=== PATIENT | female | born 1945 | race Caucasian/White ===

== ENCOUNTER 2019-06-29 10:42 | Emergency (ER) | payer MEDICARE, OTHER ==
[2019-06-29] MEDS ORDERED: Acetaminophen TAB* 325 MG PO ONE (10:59)
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
[2019-06-29] MEDS ORDERED: Lidocaine PATCH 5%* 1 PATCH TRANSDERM SCH (12:15)
[2019-06-29 12:52] VITALS: BP 133/67
[2019-06-29] MEDS ORDERED: Lidocaine Patch REMOVE* 1 NOTE MISC SCH (21:00)
[2019-06-29] MEDS ORDERED: Lidocaine Patch REMOVE* 1 NOTE MISC PATCH OFF SCH (21:00)
== END 2019-06-29 12:51 | disposition home or self-care (01) ==
LOC: ED 10:42
DX: R07.89 Other chest pain (principal); S20.319A Abrasion of unspecified front wall of thorax, initial encounter; V47.5XXA Car driver injured in collision with fixed or stationary object in traffic accident, initial encounter; Y92.410 Unspecified street and highway as the place of occurrence of the external cause; E11.9 Type 2 diabetes mellitus without complications; I10 Essential (primary) hypertension; E78.5 Hyperlipidemia, unspecified; G47.30 Sleep apnea, unspecified
CPT/HCPCS: 71046; 99282; A9270-GY

== ENCOUNTER 2019-10-03 12:54 | Emergency (ER) | payer MEDICARE, OTHER ==
[2019-10-03] MEDS ORDERED: Ondansetron INJ* 2 MG/ML VIAL IV ONE (13:39)
[2019-10-03] MEDS ORDERED: Morphine 4 MG/ML VIAL (1 ml) 4 MG/ML VIAL IV ONE ×2 (13:39→15:23)
[2019-10-03] MEDS ORDERED: NS 0.9% 1000 ML** 1,000 ML IV ONE (13:39)
--- NOTE | 2019-10-03 13:40 | ED ---
Abdominal Pain/Female - HPI Summary HPI Summary: Patient is a 73 y/o F presenting to the ED for a chief complaint of RLQ abdominal pain. Patient is present with her . On 10/03/19, patient began to feel RLQ abdominal pain, constipation, dizziness, dry mouth, lightheadedness , palpitations, chills, nausea, and vomiting. She rates her abdominal pain as 5/ 10 in severity and is described as a dull sensation. She describes her one episode of vomiting as avila in color. She last had a bowel movement on 10/03/19 and notes difficulty with urinary voiding on 10/02/19. Patient took milk of magnesia and drank hot tea without relief. On 10/01/19, she noticed erythema and swelling of the left ring finger that her hairdresser told her could be cellulitis, which has since resolved after removing her rings. Patient denies any fever, erythema of eyes, sore throat, CP, SOB, cough, dysuria, hematuria, urinary burning, blood in the stool, myalgia, or rash. She recently started Toviaz for urinary incontinence prescribed her Dr. Nicholson with relief of her urinary incontinence. PSHx is significant for bariatric surgery 5 years ago and tubal ligation. - History of Current Complaint Chief Complaint: EDAbdPain Stated Complaint: RIGHT ABD PAIN Time Seen by Provider: 10/03/19 13:18 Hx Obtained From: Patient Onset/Duration: Sudden Onset, Still Present Timing: Intermittent Episode Lasting Severity Initially: Moderate Severity Currently: Moderate Pain Intensity: 5 Pain Scale Used: 0-10 Numeric Location: Discrete At: RLQ Radiates: No Character: Dull Aggravating Factor(s): Nothing Alleviating Factor(s): Nothing Associated Signs and Symptoms: Positive: Dizzy, Constipation, Vomiting. Negative: Diaphoresis, Fever, Cough, Chest Pain, Blood in Stool, Urinary Symptoms - Negative dysuria, hematuria, or urinary burning Allergies/Adverse Reactions: Allergies Allergy/AdvReac Type Severity Reaction Status Date / Time No Known Allergies Allergy Verified 10/03/19 13:00 Home Medications: Home Medications Bupropion XL* [Wellbutrin XL *] 150 mg PO DAILY 10/03/19 [History Confirmed 12/21] Vit A/Vit C/Vit E/Zinc/Copper [Preservision Areds Softgel] 1 each PO DAILY 10/03 [History Confirmed 10/03/19] PMH/Surg Hx/FS Hx/Imm Hx Previously Healthy: Yes Endocrine/Hematology History: Reports: Hx Diabetes - diet controlled, Hx Anemia - OFF AND ON / HX OF WHITE BLOOD ANORMALY, SEES DR. BUTLER,, Other Endocrine/ Hematological Disorders - Presently has elevated WBC's (11-23-12) Denies: Hx Bone Marrow Disease, Hx Systemic Lupus Erythematosus, Hx Sickle Cell Disease, Hx Thyroid Disease Cardiovascular History: Reports: Hx Hypertension, Other Cardiovascular Problems/ Disorders - CHOLESTEROL CONTROL WITH MEDS Denies: Hx Congestive Heart Failure Respiratory History: Reports: Hx Sleep Apnea - current CPAP user Denies: Hx Asthma, Hx Chronic Obstructive Pulmonary Disease (COPD) Comment Only: Other Respiratory Problems/Disorders - sleep apnea GI History: Reports: Other GI Disorders - abnormal findings us,left adnexal mass Denies: Hx Ulcer History: Denies: Hx Dialysis, Hx Renal Disease, Other Problems/Disorders Musculoskeletal History: Reports: Hx Arthritis, Other Musculoskeletal History - arthritis in knees, wears a shoe lift Denies: Hx Rheumatoid Arthritis, Hx Osteoporosis Sensory History: Reports: Hx Cataracts - BILATERAL, Hx Contacts or Glasses, Hx Glaucoma Denies: Hx Legally Blind, Hx Deafness, Hx Hearing Aid Opthamlomology History: Reports: Hx Cataracts - BILATERAL, Hx Contacts or Glasses, Hx Glaucoma Denies: Hx Legally Blind EENT History: Denies: Hx Deafness Neurological History: Denies: Other Neuro Impairments/Disorders Psychiatric History: Reports: Hx Depression - NO MEDS - Cancer History Hx Chemotherapy: No Hx Radiation Therapy: No - Surgical History Surgical History: Yes Surgery Procedure, Year, and Place: uvulaectomy laser,tubal,right leg, , tonsilectomy 1999 RIGHT WRIST,1965 DOUBLE COMPOUND R LEG FX, gastric bypass-rny 09/15 Hx Anesthesia Reactions: No Infectious Disease History: No Infectious Disease History: Denies: Hx Clostridium Difficile, Hx Hepatitis, Hx Human Immunodeficiency Virus (HIV), Hx of Known/Suspected MRSA, Hx Shingles, Hx Tuberculosis, Hx Known/ Suspected VRE, Hx Known/Suspected VRSA, History Other Infectious Disease, Traveled Outside the [place] in Last 30 Days - Family History Known Family History: Positive: Hypertension, Respiratory Disease - emphysema, Other - pancreatic CA, prostate CA Negative: Diabetes - Social History Occupation: Retired Lives: With Family Alcohol Use: None Hx Substance Use: Yes Substance Use Type: Reports: None Substance Use Comment - Amount & Last Used: VERY OCCASIONALLY - NONE RECENTLY Hx Tobacco Use: No Smoking Status (MU): Never Smoked Tobacco Review of Systems Positive: Chills. Negative: Fever Negative: Erythema Positive: Other - Positive dry mouth. Negative: Sore Throat Positive: Palpitations. Negative: Chest Pain Negative: Shortness Of Breath, Cough Positive: Abdominal Pain - RLQ, Vomiting, Nausea, Other - Positive constipation ; negative blood in stool Positive: incontinence - Urinary. Negative: burning - Urinary, dysuria, frequency - Urinary, hematuria Negative: Myalgia, Edema Positive: Other - Positive erythema and redness of the left ring finger. Negative: Rash Neurological: Other - Positive dizziness and lightheadedness All Other Systems Reviewed And Are Negative: Yes Physical Exam - Summary Physical Exam Summary: Constitutional: Well-developed, Well-nourished, Alert. (-) Distressed Skin: Warm, Dry HENT: Normocephalic; Atraumatic Eyes: Conjunctiva normal Neck: Musculoskeletal ROM normal neck. (-) JVD, (-) Stridor, (-) Tracheal deviation Cardio: Rhythm regular, rate normal, Heart sounds normal; Intact distal pulses; The pedal pulses are 2+ and symmetric. Radial pulses are 2+ and symmetric. (-) Murmur Pulmonary/Chest wall: Effort normal. (-) Respiratory distress, (-) Wheezes, (-) Rales Abd: Soft, (-) tenderness, (-) Distension, (-) Guarding, (-) Rebound Musculoskeletal: (-) Edema Lymph: (-) Cervical adenopathy Neuro: Alert, Oriented x3 Psych: Mood and affect Normal Triage Information Reviewed: Yes Vital Signs On Initial Exam: Initial Vitals Temp Pulse Resp BP Pulse Ox 98.1 F 64 19 205/107 96 10/03/19 12:57 10/03/19 12:57 10/03/19 12:57 10/03/19 12:57 10/03/19 12:57 Vital Signs Reviewed: Yes Procedures - Sedation Patient Received Moderate/Deep Sedation with Procedure: No Diagnostics - Vital Signs Vital Signs Temp Pulse Resp BP Pulse Ox 10/03/19 12:57 98.1 F 64 19 205/107 96 - Laboratory Result Diagrams: 10/03/19 13:33 10/03/19 13:33 Lab Statement: Any lab studies that have been ordered have been reviewed, and results considered in the medical decision making process. - CT Abdomen/Pelvis CT CT Interpretation Completed By: Radiologist Summary of CT Findings: Abdomen/Pelvis CT IMPRESSION: #. The constellation of findings strongly favors recent passage of a 0.25 cm RIGHT renal stone with the stone now in the dependent portion of the urinary bladder. Associated mildly delayed RIGHT nephrogram and significant perinephric and periureteral edema. Negative for hydronephrosis. Correlate with urinalysis for potential associated urinary tract infection/pyelonephritis. Reviewed by Dr. Cline. - EKG 13:39 Cardiac Rate: Bradycardia - 55 BPM EKG Rhythm: Sinus Bradycardia ST Segment: Normal Ectopy: None Summary of EKG Findings: EKG at 13:39 shows 55 BPM with normal sinus rhythm, no STEMI. Reviewed and interpreted by Dr. Cline. Re-Evaluation - Re-Evaluation First Eval Re-Evaluation Time: 17:55 Change: Unchanged Comment: At 17:55, ureteral tone is present in the urine cup at the bedside. Abdominal Pain Fem Course/Dx - Course Course Of Treatment: Patient is a 73 y/o F presenting to the ED for a chief complaint of RLQ abdominal pain. Patient is present with her . On , patient began to feel RLQ abdominal pain, constipation, dizziness, dry mouth , lightheadedness, palpitations, chills, nausea, and vomiting. She rates her abdominal pain as 5/10 in severity and is described as a dull sensation. She describes her one episode of vomiting as avila in color. She last had a bowel movement on 10/03/19 and notes difficulty with urinary voiding on 10/02/19. Patient took milk of magnesia and drank hot tea without relief. On 10/01/19, she noticed erythema and swelling of the left ring finger that her hairdresser told her could be cellulitis, which has since resolved after removing her rings. Patient denies any fever, erythema of eyes, sore throat, CP, SOB, cough, dysuria, hematuria, urinary burning, blood in the stool, myalgia, or rash. She recently started Toviaz for urinary incontinence prescribed her Dr. Nicholson with relief of her urinary incontinence. PSHx is significant for bariatric surgery 5 years ago and tubal ligation. On exam, unremarkable findings. In the ED course, patient was given Bactrim 1 tab PO, visipaque 132 ml IV, morphine 2 mg IV, morphine 4 mg IV, Zofran 4 mg IV, and fluids. Laboratory abnormal findings: WBC 13.5, MCV 104, MCH 34, RDW 20, absolute neuts 12.2, absolute lymphs 0.7, glucose 139, c-reactive protein 11.29, lipase <10, urine speicifc gravity 1.043, urine protein 2+, urine ketones trace, urine blood 3+, urine RBC 3+. EKG at 13:39 shows 55 BPM with normal sinus rhythm, no STEMI. Abdomen/Pelvis CT IMPRESSION: #. The constellation of findings strongly favors recent passage of a 0.25 cm RIGHT renal stone with the stone now in the dependent portion of the urinary bladder. Associated mildly delayed RIGHT nephrogram and significant perinephric and periureteral edema. Negative for hydronephrosis. Correlate with urinalysis for potential associated urinary tract infection/pyelonephritis. At 17:55, ureteral tone is present in the urine cup at the bedside. Patient will be discharged with a diagnosis of ureteral stone. Follow up with Dr. Nicholson in 3-5 days. - Diagnoses Provider Diagnoses: Ureteral stone Discharge ED - Sign-Out/Discharge Documenting (check all that apply): Patient Departure - Discharge - Discharge Plan Condition: Stable Disposition: HOME Prescriptions: Sulfamethox/Trimethoprim DS* [Bactrim DS 800/160 TAB*] 1 tab PO BID #10 tab Patient Education Materials: Ureteral Stones (ED) Referrals: Evelyne Keller MD [Primary Care Provider] - Anatoly Nicholson MD [Medical Doctor] - 3 Days Additional Instructions: Follow up with Dr. Nicholson in 3-5 days. RETURN TO THE EMERGENCY DEPARTMENT FOR FEVER, WORSENING PAIN, CHANGING SYMPTOMS, OR WORSENING SYMPTOMS. - Attestation Statements Document Initiated by Scribe: Yes Documenting Scribe: Ping Linares Provider For Whom Scribe is Documenting (Include Credential): Jack Cline MD Scribe Attestation: Ping Ventura, scribed for Jack Cline MD on 10/03/19 at 1802. Status of Scribe Document: Ready
[2019-10-03 13:42] LABS: ABS Lymphocytes 0.7 10^3/ul (1.0-4.8); ABS Monocytes 0.6 10^3/ul (0-0.8); ABS Neutrophils 12.2 10^3/ul (1.5-7.7); Eosinophil % 0.1 %; Hematocrit 41 % (35-47); Hemoglobin 13.2 g/dL (12.0-16.0); Lymphocyte % 4.8 %; Mean Corpuscular HGB Conc 33 g/dL (31-36); Mean Corpuscular Hemoglobin 34 pg (27-31); Mean Corpuscular Volume 104 fL (80-97); Mean Platelet Volume 8.2 fL (7.4-10.4); Platelet Count 409 10^3/uL (150-450); Red Blood Count 3.93 10^6 /uL (3.70-4.87); Red Cell Distribution Width 20 % (10-15); White Blood Count 13.5 10^3/uL (3.5-10.8)
[2019-10-03 14:00] LABS: ALT 12 U/L (7-52); AST 14 U/L (13-39); Albumin 3.9 g/dL (3.2-5.2); Albumin/Globulin Ratio 1.3 (1-3); Alkaline Phosphatase 103 U/L (34-104); Anion Gap 6 mmol/L (2-11); BUN/Creatinine Ratio 15.2 (8-20); Blood Urea Nitrogen 14 mg/dL (6-24); C Reactive Protein 11.29 mg/L (<8.01); CO2 Carbon Dioxide 27 mmol/L (22-32); Calcium 9.3 mg/dL (8.6-10.3); Chloride 107 mmol/L (101-111); EGFR African American 72.6 (>60); Globulin 2.9 g/dL (2-4); Glucose 139 mg/dL (70-100); Sodium 140 mmol/L (135-145); Total Protein 6.8 g/dL (6.4-8.9)
[2019-10-03 14:11] LABS: Magnesium 2.2 mg/dL (1.9-2.7)
[2019-10-03 14:14] LABS: Troponin I 0.01 ng/mL (<0.03)
[2019-10-03] MEDS ORDERED: Iodixanol* (CONTRAST) 320 MG/ML 100 ML SDV IV ONE (15:39)
[2019-10-03 17:10] LABS: Urine Appearance Cloudy; Urine Bilirubin Negative (Negative); Urine Blood 3+ (Negative); Urine Color Yellow; Urine Glucose Negative (Negative); Urine Ketones Trace (Negative); Urine Nitrite Negative (Negative); Urine Protein 2+(100 mg/dL) (Negative); Urine Specific Gravity 1.043 (1.010-1.030); Urine Urobilinogen Negative (Negative)
[2019-10-03 17:13] LABS: Urine Bacteria Absent (Absent); Urine Red Blood Cell 3+(>10/hpf) (Absent); Urine White Blood Cell Absent (Absent)
[2019-10-03] MEDS ORDERED: Sulfamethox/Trimethoprim DS 800/160* TAB PO ONE (17:34)
[2019-10-03 18:20] VITALS: BP 137/64
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
--- OUTSIDE RECORDS SUMMARY | 2019-10-04 16:24 | XMS REPORT | Continuity of Care Document ---
:1945 External Reference #:[id number] Author Name Calvin Dumont, OD Address [address] [place] [address] Care Team Providers Name Role Phone Berenice Keller MD Care Team Information Group Worker [phone] Problems Active Problems Provider Date Type 2 diabetes mellitus Onset: 07/16/2016 Convalescence after surgery Gino Zelaya M.D. Onset: 08/06/2016 Nonexudative age-related macular degeneration Gino Zelaya M.D. Onset: Combined form of senile cataract Gino Zelyaa M.D. Onset: 07/16/2016 Social History Type Date Description Comments Sex Unknown ETOH Use Denies alcohol use Tobacco Use Start: Unknown Patient has never smoked Smoking Status Reviewed: 08/24/19 Patient has never smoked Allergies, Adverse Reactions, Alerts Description No Known Drug Allergies Medications Active Medications SIG Qnty Indications Ordering Provider Date Bupropion HCL ER (SR) Berenice Keller MD 150mg Tablets ER 12HR Atorvastatin Calcium Berenice Keller MD 10mg Tablets Lisinopril-Hydrochlorothiazide Berenice Keller MD 10-12.5mg Tablets Hydroxyurea MD [facility] 500mg Capsules Poly-Iron 150 MD Shadi, Keanu 150mg Capsules Metoprolol Tartrate Berenice Keller MD 25mg Tablets Alendronate Sodium Unknown 70mg Tablets Immunizations Description No Information Available Vital Signs Date Vital Result Comment 08/24/2019 2:38pm Intraocular Pressure Right Eye 15 mmHg Intraocular Pressure Left Eye 15 mmHg 08/24/2017 11:50am Intraocular Pressure Right Eye 19 mmHg Intraocular Pressure Left Eye 19 mmHg Results Description No Information Available Procedures Date Code Description Status 08/24/2019 30565 Fundus Photography W/Interpretation & Report Completed 08/24/2019 59677 Refraction Completed 08/24/2019 19086 Eye Exam Est Comprehensive Completed Medical Devices Description No Information Available Encounters Description No Information Available Assessments Date Code Description Provider 08/24/2019 H35.3131 Nonexudative age-related macular degeneration, Calvin Dumont, OD bilateral, early dry stage 08/24/2019 E11.9 Type 2 diabetes mellitus without complications Calvin Dumont, OD 08/24/2019 H43.393 Other vitreous opacities, bilateral Calvin Dumont, OD 08/24/2019 H52.223 Regular astigmatism, bilateral Calvin Dumont, OD Plan of Treatment 08/24/2019 - Calvin Dumont, ODH35.3131 Nonexudative age-related macular degeneration, bilateral, early dry vxpezG99.9 Type 2 diabetes mellitus without setjkrcuwxssnP16.393 Other vitreous opacities, ceqwvhfmbB22.223 Regular astigmatism, bilateralFollow up:6 mos OCT mac, sooner PRN Functional Status Description No Information Available Mental Status Description No Information Available Referrals Description No Information Available
== END 2019-10-03 18:18 | disposition home or self-care (01) ==
LOC: ED 12:54
DX: N20.1 Calculus of ureter (principal); E11.9 Type 2 diabetes mellitus without complications; D64.9 Anemia, unspecified; I10 Essential (primary) hypertension; E78.00 Pure hypercholesterolemia, unspecified; F32.9 Major depressive disorder, single episode, unspecified; Z98.51 Tubal ligation status; Z98.84 Bariatric surgery status; Z79.899 Other long term (current) drug therapy
CPT/HCPCS: 36415; 74177; 80053; 81003; 81015; 83605; 83690; 83735; 84443; 84484; 85025; 86140; 93005; 96361; 96374; 96375; 96376; 99283; A9270-GY; J2270; J2405; Q9967